=== PATIENT | male | born 1965 | race Caucasian/White ===

== ENCOUNTER 2021-04-10 09:08 | Inpatient (IN) | payer BC ==
[~2021-04-10] VITALS: Ht 170.2 cm; Wt 76.3 kg
[2021-04-10] MEDS ORDERED: dexameTHASONE 20MG/5ML VIAL (J1100 PER 1MG) IV ONE (09:35)
[2021-04-10 10:06] LABS: HEMOGLOBIN 13.4 g/dl (13.5-17.5); LYMPH # 0.8 10^3/uL (1.5-5.0); LYMPH % 18.3 % (24.0-44.0); MEAN CORPUSCULAR HEMOGLOBIN 31.4 pg (27.0-33.0); MEAN CORPUSCULAR HGB CONC 34.4 g/dl (32.0-36.5); MEAN CORPUSCULAR VOLUME 91.3 fl (80.0-96.0); MONO # 0.2 10^3/uL (0.0-0.8); MONO % 5.8 % (2.0-8.0); NEUTROPHILS # 3.2 10^3/uL (1.5-8.5); NEUTROPHILS % 75.7 % (36.0-66.0); PLATELET COUNT, AUTOMATED 133 10^3/uL (150-450); RED BLOOD COUNT 4.27 10^6/uL (4.30-6.10); WHITE BLOOD COUNT 4.2 10^3/uL (4.0-10.0)
[2021-04-10] MEDS: COMBIVENT RESPIMAT 100-20MCG INHALER 4GM INH SCH ×3 (10:12→10:31)
[2021-04-10 10:14] LABS: INR 1.12; PROTHROMBIN TIME 14.9 SECONDS (12.7-14.5)
[2021-04-10 10:15] LABS: PARTIAL THROMBOPLASTIN TIME 29.9 SECONDS (25.9-37.0)
[2021-04-10 10:17] LABS: D-DIMER QUANT 2283.25 ng/ml (<500)
--- NOTE | 2021-04-10 10:17 | REP ---
INDICATION: DYSPNEA/COUGH/Covid+ COMPARISON: None. TECHNIQUE: Portable AP view of the chest FINDINGS: Patchy predominantly lower lobe infiltrates (right greater than left) consistent with COVID-19 pulmonary disease. No effusion. No pneumothorax. Mediastinum and cardiac silhouette normal. Skeletal structures intact. IMPRESSION: Patchy bilateral opacities consistent with COVID-19 pulmonary disease. <Electronically signed by Shad Cruz > 04/10/21 [id number]
[2021-04-10] MEDS ORDERED: RA T500C2 PO (10:52)
[2021-04-10] MEDS ORDERED: PURE500C5 PO (10:52)
[2021-04-10] MEDS ORDERED: ZINC1TAB2 PO (10:52)
[2021-04-10] MEDS ORDERED: COQ1200C PO (10:52)
[2021-04-10] MEDS ORDERED: HOME MED LIST COMPLETE! XX SCH (10:55)
[2021-04-10 11:02] LABS: ALBUMIN 2.2 GM/DL (3.2-5.2); ALT/SGPT 45 U/L (12-78); BILIRUBIN,TOTAL 0.4 MG/DL (0.2-1.0); BLOOD UREA NITROGEN 17 MG/DL (7-18); CALCIUM LEVEL 7.3 MG/DL (8.5-10.1); CARBON DIOXIDE LEVEL 30 MEQ/L (21-32); CHLORIDE LEVEL 96 MEQ/L (98-107); CK-MB VALUE MASS 1.2 NG/ML (<3.6); CPK CREATINE PHOSPHOKINASE 167 U/L (39-308); CREATININE FOR GFR 1.23 MG/DL (0.70-1.30); FERRITIN 2521 NG/ML (26-388); GLOMERULAR FILTRATION RATE > 60.0 (>56); GLUCOSE, FASTING 122 MG/DL (70-100); LDH LACTATE DEHYDROGENASE 401 U/L (87-241); MB/CK RELATIVE INDEX 0.72 (< OR =4); POTASSIUM SERUM 3.4 MEQ/L (3.5-5.1); SODIUM LEVEL 130 MEQ/L (136-145); TOTAL PROTEIN 5.9 GM/DL (6.4-8.2); TROPONIN I 0.03 NG/ML (< 0.10)
--- NOTE | 2021-04-10 12:18 | HPEPDOC ---
General Date of Admission 04/10/21 Date of Service: Apr 10, 2021 Chief Complaint The patient is a 56-year-old male admitted with a reason for visit of Covid +. 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 Patient stated that last Tuesday he was diagnosed with COVID-19 and he developed progressive weakness associated with dry cough. Today he developed increased shortness of breath. He denied fever or chills. In ER patient was found to have no leukocytosis sodium level of 130, potassium 3.4, ferritin 2521, procalcitonin 0.29, D-dimer 2283. Chest x-ray showed Patchy bilateral opacities consistent with COVID-19 pulmonary disease Home Medications Scheduled Ascorbic Acid (Vitamin C) 500 Mg Capsule.er, 500 MG PO DAILY, (Reported) Turmeric Root Extract (Turmeric) 500 Mg Capsule, 500 MG PO DAILY, (Reported) Ubidecarenone (Co Q-10) 200 Mg Capsule, 200 MG PO DAILY, (Reported) Zinc (Zinc) 50 Mg Tablet, 50 MG PO DAILY, (Reported) Allergies Coded Allergies: No Known Allergies (Unverified , 04/10/21) Past Medical History Medical History B-cell lymphoma, osteoarthritis Surgical History Right hip replacement, both knees replacement Family History I personally reviewed family history and found not pertinent Social History * Smoker: Denies Alcohol: Denies Drugs: denies A-FIB/CHADSVASC A-FIB History Current/History of A-Fib/PAF?: No Current PO Anticoag Therapy: No Review of Systems Constitutional: Reports: Weakness, Fatigue; Denies: Chills, Fever Eyes: Denies: Pain ENT: Denies: Head Aches Skin: Denies: Rash, Lesions Pulmonary: Reports: Dyspnea, Cough Cardiovascular: Denies: Chest Pain, Palpitations Gastrointestinal: Denies: Nausea Genitourinary: Denies: Dysuria Hematologic: Denies: Bruising Endocrine: Denies: Polydipsia Musculoskeletal: Denies: Neck Pain Neurological: Denies: Weakness Psych: Reports: Mood Normal Physical Examination General Exam: Positive: Alert, Cooperative Eye Exam: Positive: PERRLA ENT Exam: Negative: Atraumatic Neck Exam: Positive: Supple; Negative: JVD Chest Exam: Positive: Diminished Heart Exam: Positive: Rate Normal Telemetry: Positive: No significant arrhythmia Abdomen Exam: Positive: Normal bowel sounds Extremity Exam: Negative: Clubbing, Cyanosis Skin Exam: Positive: Nl turgor and temperature Neuro Exam: Positive: Normal Gait Psych Exam: Positive: Oriented x 3 Vital Signs Vital Signs Date Time Temp Pulse Resp B/P (MAP) Pulse Ox O2 Delivery O2 Flow Rate FiO2 04/10/21 09:09 99.9 83 24 103/58 (73) 83 Room Air Laboratory Data Labs 24H Laboratory Tests 2 04/10/21 09:49: Immature Granulocyte % (Auto) 0.2, Neutrophils (%) (Auto) 75.7H, Lymphocytes (%) (Auto) 18.3L, Monocytes (%) (Auto) 5.8, Eosinophils (%) (Auto) 0.0, Basophils (%) (Auto) 0.0, Neutrophils # (Auto) 3.2, Lymphocytes # (Auto) 0.8L, Monocytes # (Auto) 0.2, Eosinophils # (Auto) 0.0, Basophils # (Auto) 0.0, Nucleated Red Blood Cells % (auto) 0.0, Prothrombin Time 14.9H, Prothromb Time International Ratio 1.12, Activated Partial Thromboplast Time 29.9, D-Dimer, Quantitative 2283.25H, Anion Gap 4L, Glomerular Filtration Rate > 60.0, Lactic Acid Level 1.3, Calcium Level 7.3L, Ferritin 2521H, Total Bilirubin 0.4, Aspartate Amino Transf (AST/SGOT) 62H, Alanine Aminotransferase (ALT/SGPT) 45, Alkaline Phosphat ase 31L, Lactate Dehydrogenase 401H, Total Creatine Kinase 167, Creatine Kinase MB 1.2, Creatine Kinase MB Relative Index 0.72, Troponin I 0.03, C-Reactive Protein, Quantitative 13.50H, Total Protein 5.9L, Albumin 2.2L, Albumin/Globulin Ratio 0.6, Procalcitonin 0.29 CBC/BMP Laboratory Tests 04/10/21 09:49 Microbiology Microbiology 04/10/21 Respiratory Virus Panel (PCR) (JD), Received Pending 04/10/21 Blood Culture, Received Pending Assessment/Plan Patient is 56 years old male with 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 Patient stated that last Tuesday he was diagnosed with COVID-19 and he developed progressive weakness associated with dry cough. Today he developed increased shortness of breath. He denied fever or chills. In ER patient was found to have no leukocytosis sodium level of 130, potassium 3.4, ferritin 2521, procalcitonin 0.29, D-dimer 2283. Chest x-ray showed Patchy bilateral opacities consistent with COVID-19 pulmonary disease Problems (1) COVID Status: Acute Problem Text: Patient developed COVID-19 pneumonia Labs according to COVID-19 protocol Remdesivir, baricitinib, dexamethasone Incentive spirometry Procalcitonin elevated to 0.29 I will start levofloxacin p.o. (2) Acute respiratory failure with hypoxia Status: Acute Problem Text: Secondary COVID-19 pneumonia Patient oxygen requirements increased from 4 L via nasal cannula Continue oxygen supplementation Plan / VTE VTE Prophylaxis Ordered?: Yes SANDRA DEVI DO Apr 10, 2021 12:18
--- OUTSIDE RECORDS SUMMARY | 2021-04-10 12:23 | CCD ---
Author Author [facility] Organization [facility] Address Unknown Phone Unavailable Care Team Providers Care Clip On Sunglasses Inspector Name Role Phone Warren, M Christopher PA-C Unavailable Unavailable Warren, M Christopher PA-C Unavailable Unavailable Warren, M Christopher PA-C Unavailable Unavailable Warren, M Christopher PA-C Unavailable Unavailable Warren, M Christopher PA-C Unavailable Unavailable Warren, M Christopher PA-C Unavailable Unavailable Warren, M Christopher PA-C Unavailable Unavailable Warren, M Christopher PA-C Unavailable Unavailable Warren, M Christopher PA-C Unavailable Unavailable Warren, M Christopher PA-C Unavailable Unavailable Warren, M Christopher PA-C Unavailable Unavailable Warren, M Christopher PA-C Unavailable Unavailable Warren, M Christopher PA-C Unavailable Unavailable Warren, M Christopher PA-C Unavailable Unavailable Warren, M Christopher PA-C Unavailable Unavailable Warren, M Christopher PA-C Unavailable Unavailable Warren, M Christopher PA-C Unavailable Unavailable Warren, M Christopher PA-C Unavailable Unavailable Warren, M Christopher PA-C Unavailable Unavailable Warren, M Christopher PA-C Unavailable Unavailable Warren, M Christopher PA-C Unavailable Unavailable Warren, M Christopher PA-C Unavailable Unavailable Warren, M Christopher PA-C Unavailable Unavailable Warren, M Christopher PA-C Unavailable Unavailable Warren, M Christopher PA-C Unavailable Unavailable Warren, M Christopher PA-C Unavailable Unavailable Re-disclosure Warning The records that you are about to access may contain information from federally-assisted alcohol or drug abuse programs. If such information is present, then the following federally mandated warning applies: This information has been disclosed to you from records protected by federal confidentiality rules (42 CFR part 2). The federal rules prohibit you from making any further disclosure of this information unless further disclosure is expressly permitted by the written consent of the person to whom it pertains or as otherwise permitted by 42 CFR part 2. A general authorization for the release of medical or other information is NOT sufficient for this purpose. The Federal rules restrict any use of the information to criminally investigate or prosecute any alcohol or drug abuse patient.The records that you are about to access may contain highly sensitive health information, the redisclosure of which is protected by Article 27-F of the [facility] Public Health law. If you continue you may have access to information: Regarding HIV / AIDS; Provided by facilities licensed or operated by the [facility] Office of Mental Health; or Provided by the [facility] Office for People With Developmental Disabilities. If such information is present, then the following [facility] mandated warning applies: This information has been disclosed to you from confidential records which are protected by state law. State law prohibits you from making any further disclosure of this information without the specific written consent of the person to whom it pertains, or as otherwise permitted by law. Any unauthorized further disclosure in violation of state law may result in a fine or fdc sentence or both. A general authorization for the release of medical or other information is NOT sufficient authorization for further disc losure. Encounters Encounter Providers Location Date Indications Data Source(s ) Outpatient Attender: Bret Warren PA-C 04/04/2021 04:24:16 PM EDT - 04/04/2021 05:20:43 PM EDT [facility] ([facility]) Medications No Information Insurance Providers Payer name Policy type / Coverage type Policy ID Covered republican ID Covered republican's relationship to lane Policy Lane Plan Information [employer] [facility] Blue Cross/ Blue Shield [id number] Self [id number] SELF PAY COVID19 ONLY . . BLUE CROSS [id number] SELF [id number] [facility] [id number] SP [id number] Problems, Conditions, and Diagnoses No Information Surgeries/Procedures No Information Results No Information Social History No Information
[2021-04-10] MEDS: LevoFLOXacin 500 MG TABLET PO SCH (13:24)
[2021-04-10] MEDS: BARICITINIB 2MG TABLET (OLUMIANT) FOR EUA PO SCH (15:44)
[2021-04-10] MEDS ORDERED: REMDESIVIR 200 MG in NS 250 ML IV ONE (17:00)
[2021-04-10] MEDS ORDERED: SODIUM CHLORIDE 0.9% INJ 10 ML SYR IV ONE (19:00)
[2021-04-10 23:07] VITALS: BP_SYST 110; BP_DIAS 61; BP_DIAS 92; O2SAT 92
[2021-04-11] VITALS (8 sets, daily range): BP systolic 98–103; BP diastolic 58–59; O2SAT 79–96
[2021-04-11 04:17] LABS: APPEARANCE, URINE CLEAR (CLEAR); BACTERIA, URINE AUTO NEGATIVE (NEGATIVE); BILIRUBIN, URINE AUTO NEGATIVE (NEGATIVE); BLOOD, URINE BLOOD NEGATIVE (NEGATIVE); COLOR, URINE YELLOW (YELLOW); GLUCOSE, URINE (UA) AUTO NEGATIVE (NEGATIVE); KETONE, URINE AUTO NEGATIVE (NEGATIVE); LEUKOCYTE ESTERASE, URINE AUTO NEGATIVE (NEGATIVE); NITRITE, URINE AUTO NEGATIVE (NEGATIVE); PROTEIN, URINE AUTO 2+ mg/dL (NEGATIVE); RBC, URINE AUTO 0 /HPF (0-3); SPECIFIC GRAVITY URINE AUTO 1.012 (1.002-1.035); SQUAMOUS EPITHELIAL CELL UR AU 0 /HPF (0-6); UROBILINOGEN, URINE AUTO 0.2 mg/dL (0.0-2.0); WBC, URINE AUTO 1 /HPF (0-3)
[2021-04-11] MEDS: LevoFLOXacin 500 MG TABLET PO SCH (04:31)
[2021-04-11 07:55] LABS: HEMATOCRIT 43.2 % (42.0-52.0); HEMOGLOBIN 14.8 g/dl (13.5-17.5); LYMPH # 0.9 10^3/uL (1.5-5.0); LYMPH % 14.3 % (24.0-44.0); MEAN CORPUSCULAR HEMOGLOBIN 31.9 pg (27.0-33.0); MEAN CORPUSCULAR HGB CONC 34.3 g/dl (32.0-36.5); MEAN CORPUSCULAR VOLUME 93.1 fl (80.0-96.0); MONO # 0.3 10^3/uL (0.0-0.8); MONO % 5.3 % (2.0-8.0); NEUTROPHILS # 5.1 10^3/uL (1.5-8.5); NEUTROPHILS % 80.1 % (36.0-66.0); PLATELET COUNT, AUTOMATED 166 10^3/uL (150-450); RED BLOOD COUNT 4.64 10^6/uL (4.30-6.10); WHITE BLOOD COUNT 6.4 10^3/uL (4.0-10.0)
[2021-04-11 08:29] LABS: ALBUMIN 2.4 GM/DL (3.2-5.2); ALT/SGPT 44 U/L (12-78); BILIRUBIN,DIRECT 0.1 MG/DL (0.0-0.2); BILIRUBIN,TOTAL 0.4 MG/DL (0.2-1.0); BLOOD UREA NITROGEN 15 MG/DL (7-18); CALCIUM LEVEL 8.6 MG/DL (8.5-10.1); CARBON DIOXIDE LEVEL 32 MEQ/L (21-32); CHLORIDE LEVEL 100 MEQ/L (98-107); CREATININE FOR GFR 0.93 MG/DL (0.70-1.30); GLOMERULAR FILTRATION RATE > 60.0 (>56); GLUCOSE, FASTING 112 MG/DL (70-100); MAGNESIUM LEVEL 2.1 MG/DL (1.8-2.4); POTASSIUM SERUM 3.8 MEQ/L (3.5-5.1); SODIUM LEVEL 137 MEQ/L (136-145); TOTAL PROTEIN 5.5 GM/DL (6.4-8.2)
[2021-04-11] MEDS: ENOXAPARIN 40MG/0.4ML SYRINGE (J1650 PER 10MG) SC SCH (11:17)
[2021-04-11] MEDS: dexameTHASONE 4 MG/ML 1ML VIAL (J1100 PER 1MG) IV SCH (11:17)
[2021-04-11] MEDS: BARICITINIB 2MG TABLET (OLUMIANT) FOR EUA PO SCH (11:17)
--- NOTE | 2021-04-11 13:21 | IPNPDOC ---
Text Note Date of Service The patient was seen on 04/11/21. NOTE Subjective: Patient's oxygen requirements significantly increased. He is cu rrently on 30 L on FiO2 60%. 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 Patient stated that last Tuesday he was diagnosed with COVID-19 and he developed progressive weakness associated with dry cough. Today he developed increased shortness of breath. He denied fever or chills. In ER patient was found to have no leukocytosis sodium level of 130, potassium 3.4, ferritin 2521, procalcitonin 0.29, D-dimer 2283. Chest x-ray showed Patchy bilateral opacities consistent with COVID-19 pulmonary disease Problems (1) COVID/ARDS Patient developed COVID-19 pneumonia Labs according to COVID-19 protocol Remdesivir, baricitinib, dexamethasone day 2 Blood culture negative Incentive spirometry Procalcitonin elevated to 0.29 I started levofloxacin p.o. (2) Acute respiratory failure with hypoxia Secondary COVID-19 pneumonia Continue oxygen supplementation DVT prophylaxis with Lovenox VS,Fishbone, I+O VS, Fishbone, I+O Laboratory Tests 04/11/21 07:05 Vital Signs Date Time Temp Pulse Resp B/P (MAP) Pulse Ox O2 Delivery O2 Flow Rate FiO2 04/11/21 08:25 91 HVNI-Vapotherm 30.0 60 04/11/21 05:41 96.4 66 19 98/58 (71) I&O- Last 24 Hours up to 6 AM0 04/11/21 06:00 Intake Total 290 ml Output Total 2175 ml Balance -1885 ml SANDRA DEVI DO Apr 11, 2021 13:21
[2021-04-11] MEDS ORDERED: guaiFENesin SYRUP 200 MG/10 ML UDC PO PRN (16:30)
[2021-04-11] MEDS: REMDESIVIR 100 MG in NS 250 ML IV SCH (17:42)
[2021-04-11] MEDS: SODIUM CHLORIDE 0.9% INJ 10 ML SYR IV SCH (17:43)
[2021-04-12 01:30] VITALS: O2SAT 87
[2021-04-12] MEDS: IPRATROPIUM 0.5MG/ALBUTEROL 2.5MG INH SOL UD 3ML (DUONEB) NEB SCH ×4 (01:56→20:03)
[2021-04-12] MEDS ORDERED: ALBUTEROL SULFATE 2.5 MG/0.5 ML INH NEB SOLN NEB PRN (02:20)
[2021-04-12 02:21] LABS: ABG BASE EXCESS 2.8 (-2.0-2.0); ABG HCO3 24.9 MEQ/L (22.0-26.0); ABG PARTIAL PRESSURE CO2 31.4 mmHg (35.0-45.0); ABG PARTIAL PRESSURE O2 55.3 mmHg (75.0-100.0); ABG STANDARD HCO3 26.7 MEQ/L (22.0-26.0); ABG TOTAL CO2 25.9 MEQ/L (22.0-29.0); ABG pH (ARTERIAL) 7.517 UNITS (7.350-7.450)
[2021-04-12] MEDS ORDERED: hydrOXYzine 25 MG TAB PO PRN (03:00)
[2021-04-12] MEDS ORDERED: RAMELTEON 8 MG TAB (ROZEREM) PO PRN (03:00)
--- NOTE | 2021-04-12 03:00 | REPVR ---
PROCEDURE INFORMATION: Exam: XR Chest Exam date and time: 04/12/2021 2:19 AM Age: 56 years old Clinical indication: Other: Desat TECHNIQUE: Imaging protocol: XR of the chest. Views: 1 view. COMPARISON: CR PORTABLE CHEST X-RAY 04/10/2021 9:53 AM FINDINGS: Lungs: There are persistent subpleural pulmonary opacities in both lungs. Infiltrates in the right lung base are slightly improved. No new abnormalities. Pleural spaces: No pleural effusion. No pneumothorax. Heart/Mediastinum: Unremarkable. No cardiomegaly. Bones/joints: Unremarkable. IMPRESSION: Interval improvement of right basilar airspace disease. Other pulmonary opacities are unchanged. Electronically signed by: Horacio Chou On 04/12/2021 02:59:54 AM
[2021-04-12] MEDS ORDERED: DOCUSATE SODIUM 100MG CAPSULE PO PRN (03:05)
[2021-04-12] MEDS ORDERED: SIMETHICONE 80MG CHEW TAB PO PRN (03:05)
[2021-04-12 03:31] LABS: BASO % 0.1 % (0.0-1.0); HEMATOCRIT 40.4 % (42.0-52.0); HEMOGLOBIN 13.9 g/dl (13.5-17.5); LYMPH # 0.7 10^3/uL (1.5-5.0); LYMPH % 9.2 % (24.0-44.0); MEAN CORPUSCULAR HEMOGLOBIN 31.7 pg (27.0-33.0); MEAN CORPUSCULAR HGB CONC 34.4 g/dl (32.0-36.5); MONO # 0.4 10^3/uL (0.0-0.8); MONO % 5.7 % (2.0-8.0); NEUTROPHILS # 6.1 10^3/uL (1.5-8.5); NEUTROPHILS % 84.4 % (36.0-66.0); PLATELET COUNT, AUTOMATED 178 10^3/uL (150-450); RED BLOOD COUNT 4.39 10^6/uL (4.30-6.10); WHITE BLOOD COUNT 7.2 10^3/uL (4.0-10.0)
[2021-04-12 03:43] LABS: INR 1.27; PROTHROMBIN TIME 16.3 SECONDS (12.7-14.5)
[2021-04-12 03:44] LABS: PARTIAL THROMBOPLASTIN TIME 34.3 SECONDS (25.9-37.0)
--- NOTE | 2021-04-12 04:00 | IPNPDOC ---
Text Note Date of Service Significant event NOTE Patient with desat episode 84 to 87%. Patient improved with proning 94 to 100%. He described increased shortness of breath sensation. ABG completed and showed respiratory alkalosis. Breathing treatment initiated. Patient reports improvement and upon sitting up SPO2 91%. He does have some coarseness to auscultation, but appears unlabored on 40L 100% vapotherm. Chest x-ray completed and actually shows some right airspace improvement. He is on Levaquin, Decadron, remdesivir, scheduled and as needed breathing treatments as well as antitussives presently. Anxiety may be playing a role, will offer prn sleep aid and anxiety medication. WCTM. VS,Fishbone, I+O VS, Fishbone, I+O Laboratory Tests 04/11/21 07:05 Vital Signs Date Time Temp Pulse Resp B/P (MAP) Pulse Ox O2 Delivery O2 Flow Rate FiO2 04/12/21 01:56 20 04/12/21 01:30 87 High Flow Mask 40.0 100 04/11/21 22:00 99.4 78 103/59 (74) I&O- Last 24 Hours up to 6 AM 04/12/21 06:00 Intake Total 1260 ml Output Total 1100 ml Balance 160 ml CHAR MATHUR NP Apr 12, 2021 02:32
[2021-04-12 04:15] LABS: ALBUMIN 2.2 GM/DL (3.2-5.2); ALT/SGPT 49 U/L (12-78); BILIRUBIN,DIRECT 0.2 MG/DL (0.0-0.2); BILIRUBIN,TOTAL 0.5 MG/DL (0.2-1.0); BLOOD UREA NITROGEN 21 MG/DL (7-18); CALCIUM LEVEL 7.9 MG/DL (8.5-10.1); CARBON DIOXIDE LEVEL 28 MEQ/L (21-32); CHLORIDE LEVEL 102 MEQ/L (98-107); CPK CREATINE PHOSPHOKINASE 206 U/L (39-308); CREATININE FOR GFR 0.95 MG/DL (0.70-1.30); FERRITIN 2302 NG/ML (26-388); GLOMERULAR FILTRATION RATE > 60.0 (>56); GLUCOSE, FASTING 118 MG/DL (70-100); LDH LACTATE DEHYDROGENASE 481 U/L (87-241); MAGNESIUM LEVEL 1.9 MG/DL (1.8-2.4); NT-PRO BNP 578 PG/ML (<125); POTASSIUM SERUM 3.8 MEQ/L (3.5-5.1); SODIUM LEVEL 138 MEQ/L (136-145); TOTAL PROTEIN 5.2 GM/DL (6.4-8.2); TROPONIN I < 0.02 NG/ML (< 0.10)
[2021-04-12] MEDS: LevoFLOXacin 500 MG TABLET PO SCH (05:23)
[2021-04-12] MEDS: ACETAMINOPHEN TAB 650MG DOSE (2X325MG) PO PRN (05:23)
[2021-04-12 05:29] VITALS: BP 110/66
[2021-04-12 08:00] VITALS: O2SAT 98
[2021-04-12 09:18] LABS: ALBUMIN 2.1 GM/DL (3.2-5.2); ALT/SGPT 45 U/L (12-78); BILIRUBIN,DIRECT 0.2 MG/DL (0.0-0.2); BILIRUBIN,TOTAL 0.4 MG/DL (0.2-1.0); C REACTIVE PROTEIN QUANTITATIV 8.79 MG/DL (0.00-0.30); CPK CREATINE PHOSPHOKINASE 207 U/L (39-308); FERRITIN 1987 NG/ML (26-388); LDH LACTATE DEHYDROGENASE 462 U/L (87-241); TOTAL PROTEIN 5.8 GM/DL (6.4-8.2); TROPONIN I < 0.02 NG/ML (< 0.10)
[2021-04-12 09:22] LABS: INR 1.23; PARTIAL THROMBOPLASTIN TIME 34.1 SECONDS (25.9-37.0)
[2021-04-12 09:25] LABS: D-DIMER QUANT 1576.56 ng/ml (<500)
[2021-04-12] MEDS: BARICITINIB 2MG TABLET (OLUMIANT) FOR EUA PO SCH (10:15)
[2021-04-12] MEDS: ENOXAPARIN 40MG/0.4ML SYRINGE (J1650 PER 10MG) SC SCH (10:15)
[2021-04-12] MEDS: dexameTHASONE 4 MG/ML 1ML VIAL (J1100 PER 1MG) IV SCH (10:16)
--- NOTE | 2021-04-12 11:11 | IPNPDOC ---
Text Note Date of Service The patient was seen on 04/12/21. NOTE Subjective: Patient's oxygen requirements significantly increased. He is cu rrently on 40 L on FiO2 100%. 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 Patient stated that last Tuesday he was diagnosed with COVID-19 and he developed progressive weakness associated with dry cough. Today he developed increased shortness of breath. He denied fever or chills. In ER patient was found to have no leukocytosis sodium level of 130, potassium 3.4, ferritin 2521, procalcitonin 0.29, D-dimer 2283. Chest x-ray showed Patchy bilateral opacities consistent with COVID-19 pulmonary disease Problems (1) COVID/ARDS Patient developed COVID-19 pneumonia Labs according to COVID-19 protocol Remdesivir, baricitinib, dexamethasone day 3 Blood culture negative Incentive spirometry Procalcitonin elevated to 0.29 I started levofloxacin p.o. day 1 (2) Acute respiratory failure with hypoxia Secondary COVID-19 pneumonia Continue oxygen supplementation DVT prophylaxis with Lovenox VS,Fishbone, I+O VS, Fishbone, I+O Laboratory Tests 04/12/21 03:21 Vital Signs Date Time Temp Pulse Resp B/P (MAP) Pulse Ox O2 Delivery O2 Flow Rate FiO2 04/12/21 08:12 91 HVNI-Vapotherm 40.0 100 04/12/21 05:29 100.5 88 21 110/66 (81) I&O- Last 24 Hours up to 6 AM 04/12/21 06:00 Intake Total 1260 ml Output Total 1425 ml Balance -165 ml SANDRA DEVI DO Apr 12, 2021 11:11
[2021-04-12 12:00] VITALS: BP 99/50; O2SAT 98
[2021-04-12 16:00] VITALS: BP 121/64
[2021-04-12] MEDS: REMDESIVIR 100 MG in NS 250 ML IV SCH (18:11)
[2021-04-12] MEDS: SODIUM CHLORIDE 0.9% INJ 10 ML SYR IV SCH (18:12)
[2021-04-12 19:45] VITALS: BP 124/67
--- NOTE | 2021-04-12 21:18 | ECGEPIP ---
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
[2021-04-13 01:42] VITALS: BP 116/66
[2021-04-13] MEDS: IPRATROPIUM 0.5MG/ALBUTEROL 2.5MG INH SOL UD 3ML (DUONEB) NEB SCH ×4 (01:45→20:07)
[2021-04-13 04:35] VITALS: BP 116/66
[2021-04-13] MEDS: ACETAMINOPHEN TAB 650MG DOSE (2X325MG) PO PRN (04:50)
[2021-04-13] MEDS: LevoFLOXacin 500 MG TABLET PO SCH (05:37)
[2021-04-13 07:35] LABS: BASO % 0.1 % (0.0-1.0); HEMATOCRIT 38.4 % (42.0-52.0); HEMOGLOBIN 13.4 g/dl (13.5-17.5); LYMPH # 0.8 10^3/uL (1.5-5.0); LYMPH % 9.6 % (24.0-44.0); MEAN CORPUSCULAR HEMOGLOBIN 31.8 pg (27.0-33.0); MEAN CORPUSCULAR HGB CONC 34.9 g/dl (32.0-36.5); MONO # 0.5 10^3/uL (0.0-0.8); MONO % 5.8 % (2.0-8.0); NEUTROPHILS # 6.8 10^3/uL (1.5-8.5); PLATELET COUNT, AUTOMATED 209 10^3/uL (150-450); RED BLOOD COUNT 4.22 10^6/uL (4.30-6.10)
[2021-04-13 08:04] LABS: BLOOD UREA NITROGEN 12 MG/DL (7-18); CALCIUM LEVEL 8.4 MG/DL (8.5-10.1); CARBON DIOXIDE LEVEL 28 MEQ/L (21-32); CHLORIDE LEVEL 104 MEQ/L (98-107); CREATININE FOR GFR 0.84 MG/DL (0.70-1.30); GLOMERULAR FILTRATION RATE > 60.0 (>56); GLUCOSE, FASTING 98 MG/DL (70-100); MAGNESIUM LEVEL 1.9 MG/DL (1.8-2.4); POTASSIUM SERUM 3.2 MEQ/L (3.5-5.1); SODIUM LEVEL 138 MEQ/L (136-145)
[2021-04-13] MEDS: BARICITINIB 2MG TABLET (OLUMIANT) FOR EUA PO SCH (08:27)
[2021-04-13] MEDS: ENOXAPARIN 40MG/0.4ML SYRINGE (J1650 PER 10MG) SC SCH (08:28)
[2021-04-13] MEDS: dexameTHASONE 4 MG/ML 1ML VIAL (J1100 PER 1MG) IV SCH (08:28)
[2021-04-13] MEDS ORDERED: POTASSIUM CHLORIDE 10MEQ SR TABLET PO ONE (13:00)
--- NOTE | 2021-04-13 16:29 | IPNPDOC ---
Text Note Date of Service The patient was seen on 04/13/21. NOTE Subjective: Patient's oxygen requirements significantly increased. He is cu rrently on 40 L on FiO2 100%. 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 Patient stated that last Tuesday he was diagnosed with COVID-19 and he developed progressive weakness associated with dry cough. Today he developed increased shortness of breath. He denied fever or chills. In ER patient was found to have no leukocytosis sodium level of 130, potassium 3.4, ferritin 2521, procalcitonin 0.29, D-dimer 2283. Chest x-ray showed Patchy bilateral opacities consistent with COVID-19 pulmonary disease Problems (1) COVID/ARDS/ SIRS Patient developed COVID-19 pneumonia Labs according to COVID-19 protocol Remdesivir, baricitinib, dexamethasone day 4. Patient developed SIRS with tachy pnea and fever Blood culture negative Incentive spirometry Procalcitonin elevated to 0.29 I started levofloxacin p.o. day 2. Procalcitonin on 04/12/2021 0.08 (2) Acute respiratory failure with hypoxia Secondary COVID-19 pneumonia Continue oxygen supplementation DVT prophylaxis with Lovenox VS,Fishbone, I+O VS, Fishbone, I+O Laboratory Tests 04/13/21 07:05 Vital Signs Date Time Temp Pulse Resp B/P (MAP) Pulse Ox O2 Delivery O2 Flow Rate FiO2 04/13/21 13:22 93 HVNI-Vapotherm 30.0 75 04/13/21 04:35 101.0 92 22 116/66 (83) I&O- Last 24 Hours up to 6 AM 04/13/21 06:00 Intake Total 360 ml Output Total 725 ml Balance -365 ml SANDRA DEVI DO Apr 13, 2021 16:29
[2021-04-13] MEDS: REMDESIVIR 100 MG in NS 250 ML IV SCH (17:54)
[2021-04-13] MEDS: SODIUM CHLORIDE 0.9% INJ 10 ML SYR IV SCH (18:00)
[2021-04-13 20:00] VITALS: BP 106/56
[2021-04-14] VITALS: BP 108/63
[2021-04-14] MEDS: IPRATROPIUM 0.5MG/ALBUTEROL 2.5MG INH SOL UD 3ML (DUONEB) NEB SCH ×4 (01:01→20:16)
[2021-04-14 04:00] VITALS: BP 113/57
[2021-04-14] MEDS: LevoFLOXacin 500 MG TABLET PO SCH (05:05)
[2021-04-14] MEDS: ACETAMINOPHEN TAB 650MG DOSE (2X325MG) PO PRN (05:05)
[2021-04-14 07:24] LABS: BASO % 0.1 % (0.0-1.0); HEMATOCRIT 39.4 % (42.0-52.0); HEMOGLOBIN 13.7 g/dl (13.5-17.5); LYMPH # 0.6 10^3/uL (1.5-5.0); LYMPH % 6.9 % (24.0-44.0); MEAN CORPUSCULAR HEMOGLOBIN 31.8 pg (27.0-33.0); MEAN CORPUSCULAR HGB CONC 34.8 g/dl (32.0-36.5); MEAN CORPUSCULAR VOLUME 91.4 fl (80.0-96.0); MONO # 0.3 10^3/uL (0.0-0.8); MONO % 3.7 % (2.0-8.0); NEUTROPHILS # 8.1 10^3/uL (1.5-8.5); NEUTROPHILS % 88.9 % (36.0-66.0); PLATELET COUNT, AUTOMATED 241 10^3/uL (150-450); RED BLOOD COUNT 4.31 10^6/uL (4.30-6.10); WHITE BLOOD COUNT 9.1 10^3/uL (4.0-10.0)
[2021-04-14] MEDS ORDERED: POTASSIUM CHLORIDE 10MEQ SR TABLET PO ONE (07:30)
[2021-04-14 07:39] LABS: INR 1.23; PROTHROMBIN TIME 15.9 SECONDS (12.7-14.5)
[2021-04-14 07:40] LABS: PARTIAL THROMBOPLASTIN TIME 30.8 SECONDS (25.9-37.0)
[2021-04-14 07:48] LABS: ALBUMIN 2.1 GM/DL (3.2-5.2); ALT/SGPT 35 U/L (12-78); BILIRUBIN,DIRECT 0.2 MG/DL (0.0-0.2); BILIRUBIN,TOTAL 0.7 MG/DL (0.2-1.0); BLOOD UREA NITROGEN 15 MG/DL (7-18); CALCIUM LEVEL 8.4 MG/DL (8.5-10.1); CARBON DIOXIDE LEVEL 29 MEQ/L (21-32); CHLORIDE LEVEL 104 MEQ/L (98-107); CPK CREATINE PHOSPHOKINASE 85 U/L (39-308); CREATININE FOR GFR 0.79 MG/DL (0.70-1.30); FERRITIN 1584 NG/ML (26-388); GLOMERULAR FILTRATION RATE > 60.0 (>56); GLUCOSE, FASTING 96 MG/DL (70-100); LDH LACTATE DEHYDROGENASE 564 U/L (87-241); MAGNESIUM LEVEL 1.9 MG/DL (1.8-2.4); NT-PRO BNP 707 PG/ML (<125); POTASSIUM SERUM 3.8 MEQ/L (3.5-5.1); SODIUM LEVEL 137 MEQ/L (136-145); TOTAL PROTEIN 5.7 GM/DL (6.4-8.2); TROPONIN I < 0.02 NG/ML (< 0.10)
--- NOTE | 2021-04-14 08:57 | IPN ---
PROGRESS NOTE DATE: 04/14/2021 SUBJECTIVE: The patient still complains of dyspnea on exertion, takes about two minutes to recover with saturation dipping down to make 86 x 60% FiO2 on Vapotherm at 30 liters flow rate. He is still febrile, 102.2 and is currently on Levaquin, baricitinib and remdesivir. The patient's appetite is decreased but no nausea, vomiting, diarrhea, abdominal pain, headache. The patient denies any dysgeusia or anosmia. OBJECTIVE: Vitals: Temperature T max 102.2, pulse 96, respiratory rate 18, blood pressure 113/57, 93% on Vapotherm, 65% FiO2, 30 liters flow rate. General: Awake, alert and oriented x3. Patient has 4-5 word conversational dyspnea. Saturation has dropped to about 85% when he speaks sentences, no JVD or thyromegaly, moist mucous membranes. Lungs: Diminished bilaterally. Heart: S1, S2, sinus rhythm. Abdomen: Soft, nontender, nondistended, positive bowel sounds. Extremities: No cyanosis, clubbing or pitting edema. Laboratory data, imaging studies, microbiology have been reviewed. ASSESSMENT AND PLAN: This is a 56-year-old with history of B-cell lymphoma, status post chemoradiation 10 years ago and has been in remission, presented with dyspnea, found to have progressive weakness and a dry cough without fever or chills, admitted for bilateral coronavirus pneumonia. IMPRESSION: 1. Coronavirus pneumonia, ARDS, systemic inflammatory response syndrome, currently on remdesivir, baricitinib, dexamethasone, day #5. Patient is still quite hypoxic on day #3 of Levaquin with persistent fever, 102.2. 2. Acute hypoxic respiratory failure secondary to coronavirus infection, currently on supplemental oxygen with Vapotherm, FiO2 65%, titrated from 100% on 04/13/2021. MTDD
[2021-04-14] MEDS: BARICITINIB 2MG TABLET (OLUMIANT) FOR EUA PO SCH (09:56)
[2021-04-14] MEDS: ENOXAPARIN 40MG/0.4ML SYRINGE (J1650 PER 10MG) SC SCH (09:56)
[2021-04-14] MEDS: dexameTHASONE 4 MG/ML 1ML VIAL (J1100 PER 1MG) IV SCH (09:57)
[2021-04-14 14:00] VITALS: BP 108/63
[2021-04-14] MEDS: REMDESIVIR 100 MG in NS 250 ML IV SCH (16:10)
[2021-04-14] MEDS: SODIUM CHLORIDE 0.9% INJ 10 ML SYR IV SCH (16:11)
[2021-04-14 17:03] VITALS: O2SAT 98
[2021-04-14 20:00] VITALS: BP 107/56
[2021-04-15] MEDS: IPRATROPIUM 0.5MG/ALBUTEROL 2.5MG INH SOL UD 3ML (DUONEB) NEB SCH ×4 (02:00→18:31)
[2021-04-15 04:00] VITALS: BP 102/56
[2021-04-15] MEDS: LevoFLOXacin 500 MG TABLET PO SCH (04:46)
[2021-04-15] MEDS: ACETAMINOPHEN TAB 650MG DOSE (2X325MG) PO PRN (04:46)
[2021-04-15 07:29] LABS: BASO % 0.1 % (0.0-1.0); HEMATOCRIT 40.4 % (42.0-52.0); HEMOGLOBIN 13.9 g/dl (13.5-17.5); LYMPH # 0.8 10^3/uL (1.5-5.0); LYMPH % 7.8 % (24.0-44.0); MEAN CORPUSCULAR HEMOGLOBIN 31.4 pg (27.0-33.0); MEAN CORPUSCULAR HGB CONC 34.4 g/dl (32.0-36.5); MEAN CORPUSCULAR VOLUME 91.4 fl (80.0-96.0); MONO # 0.5 10^3/uL (0.0-0.8); MONO % 4.9 % (2.0-8.0); NEUTROPHILS # 9.2 10^3/uL (1.5-8.5); NEUTROPHILS % 86.4 % (36.0-66.0); PLATELET COUNT, AUTOMATED 256 10^3/uL (150-450); RED BLOOD COUNT 4.42 10^6/uL (4.30-6.10); WHITE BLOOD COUNT 10.6 10^3/uL (4.0-10.0)
[2021-04-15 07:46] LABS: BLOOD UREA NITROGEN 15 MG/DL (7-18); CALCIUM LEVEL 8.5 MG/DL (8.5-10.1); CARBON DIOXIDE LEVEL 27 MEQ/L (21-32); CHLORIDE LEVEL 106 MEQ/L (98-107); CREATININE FOR GFR 0.73 MG/DL (0.70-1.30); GLOMERULAR FILTRATION RATE > 60.0 (>56); GLUCOSE, FASTING 97 MG/DL (70-100); POTASSIUM SERUM 3.8 MEQ/L (3.5-5.1); SODIUM LEVEL 139 MEQ/L (136-145)
[2021-04-15] MEDS: BARICITINIB 2MG TABLET (OLUMIANT) FOR EUA PO SCH (08:26)
[2021-04-15] MEDS: ENOXAPARIN 40MG/0.4ML SYRINGE (J1650 PER 10MG) SC SCH (08:26)
[2021-04-15] MEDS: dexameTHASONE 4 MG/ML 1ML VIAL (J1100 PER 1MG) IV SCH (08:26)
[2021-04-15 09:00] VITALS: O2SAT 95
--- NOTE | 2021-04-15 13:44 | IPN ---
PROGRESS NOTE DATE: 04/15/2021 SUBJECTIVE: Patient continues to be febrile with T-max of 102.2 yesterday. Current temperature 100.2 at the bedside at 4:00 a.m. this morning. He complains of worsening dyspnea with increased need of FiO2 from 60-80% of Vapotherm. He otherwise still has a cough productive of white sputum without chills. No nausea, vomiting or diarrhea, abdominal pain, decrease in appetite. Denies anosmia or dysgeusia. OBJECTIVE: Vital signs: T-max 102.2, current temperature 98.8, pulse 80, respiratory rate 18, blood pressure 102/56, 88% on Vapotherm, 80% FiO2, 30 liters flow rate. General: Patient is in prone position on his abdomen with his face on the left side. He is able to complete sentences. Neck: No JVD, no thyromegaly. Lungs: Diminished with no rales. Heart: S1 and S2 sinus rhythm. Abdomen: Soft, nontender, nondistended, positive bowel sounds. Extremities: No pitting edema. LABORATORY DATA/IMAGING STUDIES/MICROBIOLOGY: Have been reviewed. ASSESSMENT: This is a 56-year-old male with a history of B cell lymphoma status post chemoradiation 10 years ago and has been in remission, presented with exertional dyspnea and progressive weakness, dry cough without fever or chills, found to be positive for Coronavirus. Chest x-ray shows bilateral infiltrates. IMPRESSIONS: 1. Coronavirus pneumonia, ARDS, systemic inflammatory response. 2. Acute hypoxic respiratory failure secondary to Coronavirus. PLAN: Patient is currently on Vapotherm at 80% FiO2, flow rate of 30 liters. He remains febrile despite being on remdesivir, dexamethasone and baricitinib. We will continue current management for now as well as Lovenox, Decadron and albuterol treatments. Patient has also been covered for a possible suspected secondary bacterial infection with Levaquin 500 daily, Tylenol as needed.
[2021-04-15 14:00] VITALS: BP 108/66
[2021-04-15 14:15] VITALS: O2SAT 91
[2021-04-15 20:00] VITALS: BP 105/58
[2021-04-16] MEDS: IPRATROPIUM 0.5MG/ALBUTEROL 2.5MG INH SOL UD 3ML (DUONEB) NEB SCH ×4 (02:00→20:51)
[2021-04-16 04:00] VITALS: BP 117/56
[2021-04-16] MEDS: LevoFLOXacin 500 MG TABLET PO SCH (06:30)
[2021-04-16 07:03] LABS: BASO % 0.1 % (0.0-1.0); HEMATOCRIT 40.7 % (42.0-52.0); LYMPH # 0.7 10^3/uL (1.5-5.0); LYMPH % 7.1 % (24.0-44.0); MEAN CORPUSCULAR HEMOGLOBIN 31.6 pg (27.0-33.0); MEAN CORPUSCULAR HGB CONC 34.4 g/dl (32.0-36.5); MEAN CORPUSCULAR VOLUME 91.9 fl (80.0-96.0); MONO # 0.5 10^3/uL (0.0-0.8); NEUTROPHILS # 9.1 10^3/uL (1.5-8.5); NEUTROPHILS % 87.2 % (36.0-66.0); PLATELET COUNT, AUTOMATED 338 10^3/uL (150-450); RED BLOOD COUNT 4.43 10^6/uL (4.30-6.10); WHITE BLOOD COUNT 10.5 10^3/uL (4.0-10.0)
[2021-04-16 07:17] LABS: INR 1.29; PARTIAL THROMBOPLASTIN TIME 29.4 SECONDS (25.9-37.0); PROTHROMBIN TIME 16.5 SECONDS (12.7-14.5)
[2021-04-16 07:29] LABS: ALT/SGPT 30 U/L (12-78); BILIRUBIN,DIRECT 0.3 MG/DL (0.0-0.2); BILIRUBIN,TOTAL 0.7 MG/DL (0.2-1.0); BLOOD UREA NITROGEN 16 MG/DL (7-18); CALCIUM LEVEL 8.6 MG/DL (8.5-10.1); CARBON DIOXIDE LEVEL 29 MEQ/L (21-32); CHLORIDE LEVEL 103 MEQ/L (98-107); CPK CREATINE PHOSPHOKINASE 46 U/L (39-308); FERRITIN 1281 NG/ML (26-388); GLOMERULAR FILTRATION RATE > 60.0 (>56); GLUCOSE, FASTING 116 MG/DL (70-100); LDH LACTATE DEHYDROGENASE 465 U/L (87-241); MAGNESIUM LEVEL 1.9 MG/DL (1.8-2.4); NT-PRO BNP 317 PG/ML (<125); POTASSIUM SERUM 3.5 MEQ/L (3.5-5.1); SODIUM LEVEL 134 MEQ/L (136-145); TOTAL PROTEIN 5.8 GM/DL (6.4-8.2); TROPONIN I < 0.02 NG/ML (< 0.10)
[2021-04-16 08:00] VITALS: O2SAT 92
[2021-04-16] MEDS: dexameTHASONE 4 MG/ML 1ML VIAL (J1100 PER 1MG) IV SCH (08:47)
[2021-04-16] MEDS: BARICITINIB 2MG TABLET (OLUMIANT) FOR EUA PO SCH (08:47)
[2021-04-16] MEDS: ENOXAPARIN 40MG/0.4ML SYRINGE (J1650 PER 10MG) SC SCH (08:48)
[2021-04-16 12:00] VITALS: BP 100/59
[2021-04-16 20:00] VITALS: BP 115/61; O2SAT 98
[2021-04-16] MEDS: dexameTHASONE 20MG/5ML VIAL (J1100 PER 1MG) IV SCH (20:16)
--- NOTE | 2021-04-16 21:22 | IPN ---
PROGRESS NOTE DATE: 04/16/2021 SUBJECTIVE: Per nursing, the patient decompensates with his oxygen saturation dropping down to 80 to 85% when the patient speaks, despite Vapotherm, FiO2 of 80%. The patient continues to have dyspnea on exertion but feels that his breathing is improved, however he remains at 80% FiO2 Vapotherm with 30 liter flow rate. The patient denies any nausea, vomiting, abdominal pain, headache, changes in vision, dysphagia or diarrhea. OBJECTIVE: PHYSICAL EXAMINATION: VITAL SIGNS: Temperature 99.4, pulse 89, respiratory rate 20, blood pressure 100/59, oxygen saturation 94% on 80% FiO2, 25% flow rate Vapotherm. GENERAL APPEARANCE: Awake, alert, oriented with positive respiratory distress, desaturating down to 80-82% on Vapotherm while speaking 3-4 word sentences. The patient does use respiratory accessory muscles. He has no cyanosis, icterus, jaundice or pallor. HEENT: Dry mucous membranes. NECK: No JVD, thyromegaly or cervical lymphadenopathy. LUNGS: Diminished. HEART: S1, S2, sinus rhythm. ABDOMEN: Soft, nontender, nondistended. EXTREMITIES: No pitting edema. LABORATORY DATA: Reviewed. IMAGING STUDIES: Reviewed. ASSESSMENT: This is a 56-year-old male with a history of B-cell lymphoma, status post chemoradiation 10 years ago, in remission, who presented with dyspnea on exertion, weakness, dry cough without fever or chills, found to have bilateral infiltrates on chest x-ray and admitted for acute hypoxic respiratory failure secondary to coronavirus pneumonia, ARDS and systemic inflammatory response. IMPRESSION: 1. Coronavirus pneumonia, ARDS, systemic inflammatory response. 2. Acute hypoxic respiratory failure secondary to coronavirus infection. PLAN: The patient is being weaned down from Vapotherm currently 80% FiO2. He is continued on Remdesivir, Dexamethasone, Baricitinib. Per Electrical Instrument Technician, Dr. Calderon, he has found better response and improved oxygenation when steroids are increased. Therefore Decadron will be increased to twice daily dosing. Continue on Lovenox, Albuterol treatments and also on antibiotics for suspected secondary bacterial pneumonia.
[2021-04-17] MEDS: IPRATROPIUM 0.5MG/ALBUTEROL 2.5MG INH SOL UD 3ML (DUONEB) NEB SCH ×4 (02:00→19:58)
[2021-04-17] MEDS: LevoFLOXacin 500 MG TABLET PO SCH (05:48)
[2021-04-17 06:00] VITALS: BP 112/69
[2021-04-17 06:04] LABS: BASO % 0.1 % (0.0-1.0); HEMATOCRIT 41.2 % (42.0-52.0); HEMOGLOBIN 14.5 g/dl (13.5-17.5); LYMPH # 0.7 10^3/uL (1.5-5.0); LYMPH % 7.9 % (24.0-44.0); MEAN CORPUSCULAR HEMOGLOBIN 31.7 pg (27.0-33.0); MEAN CORPUSCULAR HGB CONC 35.2 g/dl (32.0-36.5); MEAN CORPUSCULAR VOLUME 90.2 fl (80.0-96.0); MONO # 0.4 10^3/uL (0.0-0.8); MONO % 4.6 % (2.0-8.0); NEUTROPHILS # 7.3 10^3/uL (1.5-8.5); NEUTROPHILS % 86.8 % (36.0-66.0); PLATELET COUNT, AUTOMATED 340 10^3/uL (150-450); RED BLOOD COUNT 4.57 10^6/uL (4.30-6.10); WHITE BLOOD COUNT 8.4 10^3/uL (4.0-10.0)
[2021-04-17 06:27] LABS: BLOOD UREA NITROGEN 18 MG/DL (7-18); CALCIUM LEVEL 9.1 MG/DL (8.5-10.1); CARBON DIOXIDE LEVEL 30 MEQ/L (21-32); CHLORIDE LEVEL 104 MEQ/L (98-107); CREATININE FOR GFR 0.86 MG/DL (0.70-1.30); GLOMERULAR FILTRATION RATE > 60.0 (>56); GLUCOSE, FASTING 149 MG/DL (70-100); MAGNESIUM LEVEL 2.3 MG/DL (1.8-2.4); POTASSIUM SERUM 4.2 MEQ/L (3.5-5.1); SODIUM LEVEL 135 MEQ/L (136-145)
[2021-04-17 08:00] VITALS: O2SAT 92
[2021-04-17] MEDS: dexameTHASONE 20MG/5ML VIAL (J1100 PER 1MG) IV SCH ×2 (08:56→19:59)
[2021-04-17] MEDS: ENOXAPARIN 40MG/0.4ML SYRINGE (J1650 PER 10MG) SC SCH (08:56)
[2021-04-17] MEDS: BARICITINIB 2MG TABLET (OLUMIANT) FOR EUA PO SCH (08:56)
--- NOTE | 2021-04-17 09:25 | IPNPDOC ---
Date Seen The patient was seen on 04/17/21. Progress Note SUBJECTIVE: Patient is cough seems loose he says Zantac he can expectorated a little easier. Denies any fever chills anosmia and dysgeusia. He continues to have dyspnea exertion and conversational dyspnea dropping his saturations to 84% when he speaks 6-7 words. No chest pain pressure tightness diarrhea headaches nausea vomiting. Decreased appetite but tolerating his food.. FiO2 decreased from 80 to 60% today OBJECTIVE: PHYSICAL EXAMINATION: VITAL SIGNS: See below GENERAL APPEARANCE: Conversational dyspnea of 5-6 words Recovers to 90% on pulse ox after resting for 2 minutes HEENT: Dry mucous membranes. NECK: No JVD, thyromegaly or cervical lymphadenopathy. LUNGS: Diminished. HEART: S1, S2, sinus rhythm. ABDOMEN: Soft, nontender, nondistended. EXTREMITIES: No pitting edema. LABORATORY DATA: Reviewed. IMAGING STUDIES: Reviewed. ASSESSMENT: This is a 56-year-old male with a history of B-cell lymphoma, status post chemoradiation 10 years ago, in remission, who presented with dyspnea on exertion, weakness, dry cough without fever or chills, found to have bilateral infiltrates on chest x-ray and admitted for acute hypoxic respiratory failure secondary to coronavirus pneumonia, ARDS and systemic inflammatory response. IMPRESSION: 1. Coronavirus pneumonia, ARDS, systemic inflammatory response. 2. Acute hypoxic respiratory failure secondary to coronavirus infection. PLAN: Patient is Decadron had been increased to 10 mg IV every 12. On antivirals Decadron antibiotics Vapotherm to keep O2 sat at 90%. Slight clinical improvement with being able to wean the FiO2 from 80% to 60%. VS, I&O, 24H, Fishbone Vital Signs/I&O Vital Signs Date Time Temp Pulse Resp B/P (MAP) Pulse Ox O2 Delivery O2 Flow Rate FiO2 04/17/21 08:00 90 HVNI-Vapotherm 25.0 60 04/17/21 06:00 97.8 72 18 112/69 (83) I&O- Last 24 Hours up to 6 AM 04/17/21 06:00 Intake Total 2220 ml Output Total 2400 ml Balance -180 ml Laboratory Data 24H LABS Laboratory Tests 2 04/17/21 05:53: Immature Granulocyte % (Auto) 0.6, Neutrophils (%) (Auto) 86.8H, Lymphocytes (%) (Auto) 7.9L, Monocytes (%) (Auto) 4.6, Eosinophils (%) (Auto) 0.0, Basophils (%) (Auto) 0.1, Neutrophils # (Auto) 7.3, Lymphocytes # (Auto) 0.7L, Monocytes # (Auto) 0.4, Eosinophils # (Auto) 0.0, Basophils # (Auto) 0.0, Nucleated Red Blood Cells % (auto) 0.0, Anion Gap 1L, Glomerular Filtration Rate > 60.0, Calcium Level 9.1, Magnesium Level 2.3 CBC/BMP Laboratory Tests 04/17/21 05:53 Microbiology Microbiology 04/10/21 Blood Culture - Final, Complete NO GROWTH AFTER 5 DAYS 04/10/21 Respiratory Virus Panel (PCR) ([facility]) - Final, Complete SARS-CoV-2 (COVID 19) 04/10/21 Blood Culture - Final, Complete NO GROWTH AFTER 5 DAYS SCOTT BUENROSTRO MD Apr 17, 2021 09:25
[2021-04-17 14:00] VITALS: BP 97/63
[2021-04-17 17:04] VITALS: BP 98/56
[2021-04-17 19:59] VITALS: BP 103/60
[2021-04-17 20:00] VITALS: O2SAT 90
[2021-04-18] MEDS: IPRATROPIUM 0.5MG/ALBUTEROL 2.5MG INH SOL UD 3ML (DUONEB) NEB SCH ×4 (01:16→19:48)
[2021-04-18 04:00] VITALS: O2SAT 94
[2021-04-18] MEDS: LevoFLOXacin 500 MG TABLET PO SCH (05:07)
[2021-04-18 05:30] VITALS: BP 113/66
[2021-04-18 08:34] LABS: BASO % 0.1 % (0.0-1.0); HEMATOCRIT 41.2 % (42.0-52.0); HEMOGLOBIN 14.1 g/dl (13.5-17.5); LYMPH # 0.9 10^3/uL (1.5-5.0); LYMPH % 8.3 % (24.0-44.0); MEAN CORPUSCULAR HEMOGLOBIN 31.4 pg (27.0-33.0); MEAN CORPUSCULAR HGB CONC 34.2 g/dl (32.0-36.5); MEAN CORPUSCULAR VOLUME 91.8 fl (80.0-96.0); MONO # 0.5 10^3/uL (0.0-0.8); MONO % 4.8 % (2.0-8.0); NEUTROPHILS # 8.8 10^3/uL (1.5-8.5); NEUTROPHILS % 86.1 % (36.0-66.0); PLATELET COUNT, AUTOMATED 381 10^3/uL (150-450); RED BLOOD COUNT 4.49 10^6/uL (4.30-6.10); WHITE BLOOD COUNT 10.2 10^3/uL (4.0-10.0)
[2021-04-18 08:45] LABS: BLOOD UREA NITROGEN 17 MG/DL (7-18); CALCIUM LEVEL 8.9 MG/DL (8.5-10.1); CARBON DIOXIDE LEVEL 28 MEQ/L (21-32); CHLORIDE LEVEL 103 MEQ/L (98-107); CREATININE FOR GFR 0.89 MG/DL (0.70-1.30); GLOMERULAR FILTRATION RATE > 60.0 (>56); GLUCOSE, FASTING 99 MG/DL (70-100); MAGNESIUM LEVEL 2.2 MG/DL (1.8-2.4); POTASSIUM SERUM 4.2 MEQ/L (3.5-5.1); SODIUM LEVEL 137 MEQ/L (136-145)
[2021-04-18] MEDS: BARICITINIB 2MG TABLET (OLUMIANT) FOR EUA PO SCH (09:19)
[2021-04-18] MEDS: ENOXAPARIN 40MG/0.4ML SYRINGE (J1650 PER 10MG) SC SCH (09:20)
[2021-04-18] MEDS: dexameTHASONE 20MG/5ML VIAL (J1100 PER 1MG) IV SCH ×2 (09:20→21:41)
[2021-04-18 15:00] VITALS: BP 110/70
[2021-04-18 20:00] VITALS: O2SAT 91
[2021-04-18 21:42] VITALS: BP 118/63
[2021-04-19] VITALS (10 sets, daily range): BP systolic 100–114; BP diastolic 58–65; O2SAT 88–94
[2021-04-19] MEDS: IPRATROPIUM 0.5MG/ALBUTEROL 2.5MG INH SOL UD 3ML (DUONEB) NEB SCH ×4 (02:33→20:01)
[2021-04-19] MEDS: LevoFLOXacin 500 MG TABLET PO SCH (06:28)
[2021-04-19] MEDS: BARICITINIB 2MG TABLET (OLUMIANT) FOR EUA PO SCH (09:25)
[2021-04-19] MEDS: dexameTHASONE 20MG/5ML VIAL (J1100 PER 1MG) IV SCH ×2 (09:25→20:17)
[2021-04-19] MEDS: ENOXAPARIN 40MG/0.4ML SYRINGE (J1650 PER 10MG) SC SCH (09:26)
[2021-04-19 09:50] LABS: BASO % 0.1 % (0.0-1.0); HEMATOCRIT 41.8 % (42.0-52.0); HEMOGLOBIN 14.3 g/dl (13.5-17.5); LYMPH # 0.8 10^3/uL (1.5-5.0); LYMPH % 7.9 % (24.0-44.0); MEAN CORPUSCULAR HEMOGLOBIN 31.1 pg (27.0-33.0); MEAN CORPUSCULAR HGB CONC 34.2 g/dl (32.0-36.5); MEAN CORPUSCULAR VOLUME 90.9 fl (80.0-96.0); MONO # 0.6 10^3/uL (0.0-0.8); MONO % 5.5 % (2.0-8.0); NEUTROPHILS % 85.6 % (36.0-66.0); PLATELET COUNT, AUTOMATED 377 10^3/uL (150-450); WHITE BLOOD COUNT 10.5 10^3/uL (4.0-10.0)
[2021-04-19 10:01] LABS: INR 1.13; PROTHROMBIN TIME 14.9 SECONDS (12.7-14.5)
[2021-04-19 10:02] LABS: PARTIAL THROMBOPLASTIN TIME 28.8 SECONDS (25.9-37.0)
[2021-04-19 10:04] LABS: D-DIMER QUANT 1701.05 ng/ml (<500)
[2021-04-19 10:11] LABS: ERYTHROCYTE SEDIMENTATION RATE 40 mm/hr (0-20)
[2021-04-19 10:13] LABS: ALBUMIN 2.1 GM/DL (3.2-5.2); ALT/SGPT 29 U/L (12-78); BILIRUBIN,TOTAL 0.6 MG/DL (0.2-1.0); BLOOD UREA NITROGEN 19 MG/DL (7-18); C REACTIVE PROTEIN QUANTITATIV 1.67 MG/DL (0.00-0.30); CALCIUM LEVEL 8.6 MG/DL (8.5-10.1); CARBON DIOXIDE LEVEL 27 MEQ/L (21-32); CHLORIDE LEVEL 104 MEQ/L (98-107); CK-MB VALUE MASS 1.8 NG/ML (<3.6); CPK CREATINE PHOSPHOKINASE 46 U/L (39-308); CREATININE FOR GFR 0.98 MG/DL (0.70-1.30); FERRITIN 970 NG/ML (26-388); GLOMERULAR FILTRATION RATE > 60.0 (>56); GLUCOSE, FASTING 120 MG/DL (70-100); LDH LACTATE DEHYDROGENASE 331 U/L (87-241); MB/CK RELATIVE INDEX 3.91 (< OR =4); NT-PRO BNP 169 PG/ML (<125); SODIUM LEVEL 138 MEQ/L (136-145); TOTAL PROTEIN 5.4 GM/DL (6.4-8.2); TROPONIN I < 0.02 NG/ML (< 0.10)
--- NOTE | 2021-04-19 11:41 | IPNPDOC ---
Date Seen The patient was seen on 04/19/21. Progress Note SUBJECTIVE: Patient has less dyspnea, and per nursing at the bedside had not dropped his oxygen saturations below 88% while conversing for about 1 hour. His cough has improved, with minimal sputum production. Afebrile. Denies chills, anosmia, dysgeusia, nausea, vomiting, abdominal pain. OBJECTIVE: PHYSICAL EXAMINATION: VITAL SIGNS: See below GENERAL APPEARANCE: No conversational dyspnea. 90% on pulse ox -92% while speaking. Able to complete his sentences No pallor no cyanosis HEENT: Moist mucous membranes. NECK: No JVD, thyromegaly or cervical lymphadenopathy. LUNGS: Diminished. HEART: S1, S2, sinus rhythm. ABDOMEN: Soft, nontender, nondistended. EXTREMITIES: No pitting edema. LABORATORY DATA: Reviewed. IMAGING STUDIES: Reviewed. ASSESSMENT: This is a 56-year-old male with a history of B-cell lymphoma, status post chemoradiation 10 years ago, in remission, who presented with dyspnea on exertion, weakness, dry cough without fever or chills, found to have bilateral infiltrates on chest x-ray and admitted for acute hypoxic respiratory failure secondary to coronavirus pneumonia, ARDS and systemic inflammatory response. IMPRESSION: 1. Coronavirus pneumonia, ARDS, systemic inflammatory response. 2. Acute hypoxic respiratory failure secondary to coronavirus infection. PLAN: Patient is Decadron had been increased to 10 mg IV every 12. On antivirals Decadron antibiotics Vapotherm to keep O2 sat at 90%. Patient's FiO2 has been decreased from 80% to 40% with significant Clinical improvement over the past 3 days since his steroids have been increased to twice daily dosing. He currently does not have any conversational dyspnea, and does not appear to be desaturating Below 88% when he speaks. Were hoping to take him off the Vapotherm over the next 12 to 24 hours. VS, I&O, 24H, Fishbone Vital Signs/I&O Vital Signs Date Time Temp Pulse Resp B/P (MAP) Pulse Ox O2 Delivery O2 Flow Rate FiO2 04/19/21 07:57 90 HVNI-Vapotherm 20.0 40 04/19/21 06:30 96.3 57 18 112/65 (81) I&O- Last 24 Hours up to 6 AM 04/19/21 06:00 Intake Total 2160 ml Output Total 2100 ml Balance 60 ml Laboratory Data 24H LABS Laboratory Tests 2 04/19/21 09:32: Immature Granulocyte % (Auto) 0.9, Neutrophils (%) (Auto) 85.6H, Lymphocytes (%) (Auto) 7.9L, Monocytes (%) (Auto) 5.5, Eosinophils (%) (Auto) 0.0, Basophils (%) (Auto) 0.1, Neutrophils # (Auto) 9.0H, Lymphocytes # (Auto) 0.8L, Monocytes # (Auto) 0.6, Eosinophils # (Auto) 0.0, Basophils # (Auto) 0.0, Nucleated Red Blood Cells % (auto) 0.0, Erythrocyte Sedimentation Rate 40H, Prothrombin Time 14.9H, Prothromb Time International Ratio 1.13, Activated Partial Thromboplast Time 28.8, Fibrinogen 611H, D-Dimer, Quantitative 1701.05H, Anion Gap 7L, G lomerular Filtration Rate > 60.0, Calcium Level 8.6, Ferritin 970H, Total Bilirubin 0.6, Aspartate Amino Transf (AST/SGOT) 14, Alanine Aminotransferase (ALT/SGPT) 29, Alkaline Phosphatase 48, Lactate Dehydrogenase 331H, Total Creatine Kinase 46, Creatine Kinase MB 1.8, Creatine Kinase MB Relative Index 3.91, Troponin I < 0.02, C-Reactive Protein, Quantitative 1.67H, BC-Wco-G-Type Natriuretic Peptide 169H, Total Protein 5.4L, Albumin 2.1L, Albumin/Globulin Ratio 0.6 CBC/BMP Laboratory Tests 04/19/21 09:32 Microbiology Microbiology 04/10/21 Blood Culture - Final, Complete NO GROWTH AFTER 5 DAYS 04/10/21 Respiratory Virus Panel (PCR) ([facility]) - Final, Complete SARS-CoV-2 (COVID 19) 04/10/21 Blood Culture - Final, Complete NO GROWTH AFTER 5 DAYS SCOTT BUENROSTRO MD Apr 19, 2021 11:31
[2021-04-20] VITALS (10 sets, daily range): BP systolic 83–98; BP diastolic 57–66; O2SAT 90–97
[2021-04-20] MEDS: IPRATROPIUM 0.5MG/ALBUTEROL 2.5MG INH SOL UD 3ML (DUONEB) NEB SCH ×4 (02:40→19:53)
[2021-04-20 07:04] LABS: BASO % 0.2 % (0.0-1.0); HEMATOCRIT 43.3 % (42.0-52.0); HEMOGLOBIN 14.6 g/dl (13.5-17.5); LYMPH # 0.8 10^3/uL (1.5-5.0); LYMPH % 6.7 % (24.0-44.0); MEAN CORPUSCULAR HEMOGLOBIN 31.3 pg (27.0-33.0); MEAN CORPUSCULAR HGB CONC 33.7 g/dl (32.0-36.5); MEAN CORPUSCULAR VOLUME 92.7 fl (80.0-96.0); MONO # 0.6 10^3/uL (0.0-0.8); MONO % 5.2 % (2.0-8.0); NEUTROPHILS # 10.5 10^3/uL (1.5-8.5); NEUTROPHILS % 86.7 % (36.0-66.0); PLATELET COUNT, AUTOMATED 368 10^3/uL (150-450); RED BLOOD COUNT 4.67 10^6/uL (4.30-6.10); WHITE BLOOD COUNT 12.1 10^3/uL (4.0-10.0)
[2021-04-20 07:20] LABS: INR 1.12; PARTIAL THROMBOPLASTIN TIME 27.5 SECONDS (25.9-37.0); PROTHROMBIN TIME 14.9 SECONDS (12.7-14.5)
[2021-04-20 07:23] LABS: D-DIMER QUANT 1253.37 ng/ml (<500)
[2021-04-20 07:31] LABS: ALBUMIN 2.1 GM/DL (3.2-5.2); ALT/SGPT 39 U/L (12-78); BILIRUBIN,TOTAL 0.4 MG/DL (0.2-1.0); BLOOD UREA NITROGEN 20 MG/DL (7-18); C REACTIVE PROTEIN QUANTITATIV 1.01 MG/DL (0.00-0.30); CALCIUM LEVEL 8.5 MG/DL (8.5-10.1); CARBON DIOXIDE LEVEL 26 MEQ/L (21-32); CHLORIDE LEVEL 105 MEQ/L (98-107); CK-MB VALUE MASS 1.3 NG/ML (<3.6); CPK CREATINE PHOSPHOKINASE 50 U/L (39-308); CREATININE FOR GFR 0.91 MG/DL (0.70-1.30); FERRITIN 830 NG/ML (26-388); GLOMERULAR FILTRATION RATE > 60.0 (>56); GLUCOSE, FASTING 103 MG/DL (70-100); LDH LACTATE DEHYDROGENASE 267 U/L (87-241); POTASSIUM SERUM 4.1 MEQ/L (3.5-5.1); SODIUM LEVEL 136 MEQ/L (136-145); TOTAL PROTEIN 5.7 GM/DL (6.4-8.2); TROPONIN I < 0.02 NG/ML (< 0.10)
[2021-04-20 08:11] LABS: ERYTHROCYTE SEDIMENTATION RATE 25 mm/hr (0-20)
--- NOTE | 2021-04-20 09:02 | IPN ---
PROGRESS NOTE DATE: 04/18/2021 SUBJECTIVE: Patient still complains of dyspnea on exertion with O2 saturation dropping to 82-84% on Vapotherm, FiO2 40% when he ambulates from bed to the bathroom. Cough is productive of white sputum, but less now. Patient denies any nausea, vomiting, abdominal pain, loss of taste or smell. Afebrile, no chills overnight. OBJECTIVE: Vital signs: Temperature 97.5, pulse 103, respiratory rate 18, blood pressure 113/66, 98% on Vapotherm, flow rate 20%, FiO2 45. General: Awake, alert, oriented times 3, 5-7 word conversational dyspnea, positive use or respiratory accessory muscles. HEENT: No pallor, icterus, jaundice. No stridor. Moist mucous membranes. Neck: No JVD, no thyromegaly. Lungs: Lungs are diminished. Heart: S1 and S2 sinus tachycardia. Abdomen: Soft, nontender, nondistended. Extremities: No pitting edema. LABORATORY DATA/IMAGING STUDIES/MICROBIOLOGY: Reviewed. ASSESSMENT: This 56-year-old male with history of B cell lymphoma status post chemoradiation 10 years ago in remission presented with dyspnea on exertion, weakness, dry cough without fever or chills, found to have bilateral infiltrates on chest x-ray and hypoxic requiring supplemental oxygen. Acute issues: 1. Acute hypoxic respiratory failure secondary to Coronavirus pneumonia. 2. ARDS. 3. Coronavirus pneumonia. 4. Systemic inflammation response. PLAN: Patient is continued on Decadron 10 mg I.V. q12h, nebulizer treatment and Levaquin. Patient has completed remdesivir. Continue with supplemental oxygen and continue titration down off the Vapotherm; currently down to 45% from 80% FiO2 earlier in the week. MTDD
[2021-04-20] MEDS: ENOXAPARIN 40MG/0.4ML SYRINGE (J1650 PER 10MG) SC SCH (09:46)
[2021-04-20] MEDS: dexameTHASONE 20MG/5ML VIAL (J1100 PER 1MG) IV SCH (09:46)
[2021-04-20] MEDS: BARICITINIB 2MG TABLET (OLUMIANT) FOR EUA PO SCH (09:46)
--- NOTE | 2021-04-20 11:37 | IPNPDOC ---
Date Seen The patient was seen on 04/20/21. Progress Note SUBJECTIVE: Patient is still dyspneic on exertion when walking from the bed to the bathroom but recovers quickly saturating 90% to 92% on 4 L nasal cannula No chest pain pressure tightness nausea vomiting diarrhea abdominal pain Denies loss of taste or smell or decrease in appetite OBJECTIVE: Vital signs: See below General: No distress speaks in full sentences HEENT: No pallor, icterus, jaundice. No stridor. Moist mucous membranes. Neck: No JVD, no thyromegaly. Lungs: Lungs are diminished. Heart: S1 and S2 sinus tachycardia. Abdomen: Soft, nontender, nondistended. Extremities: No pitting edema. LABORATORY DATA/IMAGING STUDIES/MICROBIOLOGY: Reviewed. ASSESSMENT: This 56-year-old male with history of B cell lymphoma status post chemoradiation 10 years ago in remission presented with dyspnea on exertion, weakness, dry cough without fever or chills, found to have bilateral infiltrates on chest x-ray and hypoxic requiring supplemental oxygen. Acute issues: 1. Acute hypoxic respiratory failure secondary to Coronavirus pneumonia. 2. ARDS. 3. Coronavirus pneumonia. 4. Suspected secondary bacterial infection PLAN: Patient completed IV remdesivir and oral Levaquin. He has been titrated down to 4 L of oxygen via nasal cannula. Physical therapy evaluation. Tapered Decadron. If stable on steroid taper may discharge home in the morning. [facility]O Vital Signs Date Time Temp Pulse Resp B/P (MAP) Pulse Ox O2 Delivery O2 Flow Rate FiO2 04/20/21 07:58 90 Nasal Cannula 4.0 04/20/21 07:45 30 04/20/21 04:11 96.6 85 18 96/62 (73) I&O- Last 24 Hours up to 6 AM 04/20/21 06:00 Intake Total 960 ml Output Total 1700 ml Balance -740 ml Laboratory Data 24H LABS Laboratory Tests 2 04/20/21 06:40: Immature Granulocyte % (Auto) 1.2, Neutrophils (%) (Auto) 86.7H, Lymphocytes (%) (Auto) 6.7L, Monocytes (%) (Auto) 5.2, Eosinophils (%) (Auto) 0.0, Basophils (%) (Auto) 0.2, Neutrophils # (Auto) 10.5H, Lymphocytes # (Auto) 0.8L, Monocytes # (Auto) 0.6, Eosinophils # (Auto) 0.0, Basophils # (Auto) 0.0, Nucleated Red Blood Cells % (auto) 0.0, Erythrocyte Sedimentation Rate 25H, Prothrombin Time 14.9H, Prothromb Time International Ratio 1.12, Activated Partial Thromboplast T rahul 27.5, Fibrinogen 472H, D-Dimer, Quantitative 1253.37H, Anion Gap 5L, Glomerular Filtration Rate > 60.0, Calcium Level 8.5, Ferritin 830H, Total Bilirubin 0.4, Aspartate Amino Transf (AST/SGOT) 16, Alanine Aminotransferase (ALT/SGPT) 39, Alkaline Phosphatase 62, Lactate Dehydrogenase 267H, Total Creatine Kinase 50, Creatine Kinase MB 1.3, Creatine Kinase MB Relative Index 2.60, Troponin I < 0.02, C-Reactive Protein, Quantitative 1.01H, Total Protein 5.7L, Albumin 2.1L, Albumin/Globulin Ratio 0.6 CBC/BMP Laboratory Tests 04/20/21 06:40 Microbiology Microbiology 04/10/21 Blood Culture - Final, Complete NO GROWTH AFTER 5 DAYS 04/10/21 Respiratory Virus Panel (PCR) ([facility]) - Final, Complete SARS-CoV-2 (COVID 19) 04/10/21 Blood Culture - Final, Complete NO GROWTH AFTER 5 DAYS SCOTT BUENROSTRO MD Apr 20, 2021 11:31
[2021-04-21] MEDS: IPRATROPIUM 0.5MG/ALBUTEROL 2.5MG INH SOL UD 3ML (DUONEB) NEB SCH ×3 (02:00→13:40)
[2021-04-21 06:00] VITALS: BP 119/71
[2021-04-21 07:52] VITALS: O2SAT 91
[2021-04-21] MEDS ORDERED: predniSONE 20 MG TAB PO SCH (09:00)
[2021-04-21] MEDS: ENOXAPARIN 40MG/0.4ML SYRINGE (J1650 PER 10MG) SC SCH (09:00)
[2021-04-21] MEDS: BARICITINIB 2MG TABLET (OLUMIANT) FOR EUA PO SCH (10:12)
[2021-04-21] MEDS ORDERED: PRED10TA2 PO (11:34)
--- NOTE | 2021-04-21 19:51 | DS.PDOC ---
Discharge Summary General Date of Admission Apr 10, 2021 at 11:51 Date of Discharge 04/21/21 Discharge Summary PROCEDURES PERFORMED DURING STAY: [None]. ADMITTING DIAGNOSES: Acute hypoxic respiratory failure secondary to Coronavirus pneumonia. ARDS Coronavirus pneumonia DISCHARGE DIAGNOSES: Acute hypoxic respiratory failure secondary to Coronavirus pneumonia. ARDS Coronavirus pneumonia COMPLICATIONS/CHIEF COMPLAINT: Covid, Acute Respiratory Failure With Hypoxia. HISTORY OF PRESENT ILLNESS: Patient is 56 years old male with 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 Patient stated that last Tuesday he was diagnosed with COVID-19 and he developed progressive weakness associated with dry cough. Today he developed increased shortness of breath. He denied fever or chills. In ER patient was found to have no leukocytosis sodium level of 130, potassium 3.4, ferritin 2521, procalcitonin 0.29, D-dimer 2283. Chest x-ray showed Patchy bilateral opacities consistent with COVID-19 pulmonary disease HOSPITAL COURSE: During the hospital stay patient received a course of rem desivir, baricitinib, dexamethasone. Patient developed ARDS with increased oxygen requirements to 40 L 100% FiO2. Subsequently respiration improved and his oxygen requirements decreased to 3 l today. Also patient received a course of Levaquin for possible bacterial pneumonia, procalcitonin was elevated to 0.29. Also patient received physical therapy. DISCHARGE MEDICATIONS: Please see below. ALLERGIES: Please see below. PHYSICAL EXAMINATION ON DISCHARGE: VITAL SIGNS: Please see below. LABORATORY DATA: Please see below. General: No distress speaks in full sentences HEENT: No pallor, icterus, jaundice. No stridor. Moist mucous membranes. Neck: No JVD, no thyromegaly. Lungs: Lungs are diminished. Heart: S1 and S2 sinus tachycardia. Abdomen: Soft, nontender, nondistended. Extremities: No pitting edema. IMAGING: See above PROGNOSIS: Fair ACTIVITY: [As tolerated]. DIET: Regular DISCHARGE PLAN: Home DISPOSITION: Home Health Service. ITEMS TO FOLLOWUP ON ON OUTPATIENT: Follow-up with PCP DISCHARGE CONDITION: [Stable]. TIME SPENT ON DISCHARGE: 40minutes. Vital Signs/I&Os Vital Signs Date Time Temp Pulse Resp B/P (MAP) Pulse Ox O2 Delivery O2 Flow Rate FiO2 04/21/21 08:00 4.0 04/21/21 07:52 91 Nasal Cannula 04/21/21 06:00 97.2 61 18 119/71 (87) 04/20/21 07:45 30 I&O- Last 24 Hours up to 6 AM 04/21/21 06:00 Intake Total 720 ml Output Total 475 ml Balance 245 ml Discharge Medications Scheduled Ascorbic Acid (Vitamin C) 500 Mg Capsule.er, 500 MG PO DAILY, (Reported) Prednisone (Prednisone) 10 Mg Tablet, 10 MG PO TAPER Take 4 tabs daily x 3 days, then 3 tabs daily x 3 days, then 2 tabs daily x 3 days, then 1 tab daily x 3 days and stop Turmeric Root Extract (Turmeric) 500 Mg Capsule, 500 MG PO DAILY, (Reported) Ubidecarenone (Co Q-10) 200 Mg Capsule, 200 MG PO DAILY, (Reported) Zinc (Zinc) 50 Mg Tablet, 50 MG PO DAILY, (Reported) Allergies Coded Allergies: No Known Allergies (Unverified , 04/10/21) SANDRA DEVI DO Apr 21, 2021 19:51
== END 2021-04-21 14:17 | disposition home health service (06) | DRG 137 ==
LOC: M ED 09:08 → M ED INP 11:51 → ENRESERV 22:01 → M 4MAIN 23:07
PROVIDERS: ADMIT Internal Medicine; ATTEND General Practice
PROC: XW033E5 Introduction of Remdesivir Anti-infective into Peripheral Vein, Percutaneous Approach, New Technology Group 5 (ICD-10-PCS; principal; 2021-04-10)
PROC: 3E0333Z Introduction of Anti-inflammatory into Peripheral Vein, Percutaneous Approach (ICD-10-PCS; 2021-04-10)
DX: U07.1 COVID-19 (principal); J96.01 Acute respiratory failure with hypoxia; J12.82 Pneumonia due to coronavirus disease 2019; Z85.72 Personal history of non-Hodgkin lymphomas; Z92.3 Personal history of irradiation; Z92.21 Personal history of antineoplastic chemotherapy; M19.90 Unspecified osteoarthritis, unspecified site; Z96.653 Presence of artificial knee joint, bilateral; Z96.641 Presence of right artificial hip joint; Z79.899 Other long term (current) drug therapy

== ENCOUNTER → 2021-06-23 | Outpatient (CLI) | payer BC ==
[~2021-06-23] MED LIST: COQ1200C PO; PRED10TA2 PO; PURE500C5 PO; RA T500C2 PO; ZINC1TAB2 PO
--- NOTE | 2021-06-23 21:11 | REP ---
INDICATION: HX OF PNEUMONIA COMPARISON: 04/12/2021 TECHNIQUE: PA and lateral. FINDINGS: The mediastinum and cardiac silhouette are normal. The lung rocha demonstrate improved aeration but with continued irregular subtle bilateral opacities and increased markings which may reflect chronic changes or subtle residual airspace disease and correlation with physical examination and auscultation is required. No effusion. No pneumothorax. Skeletal structures intact. IMPRESSION: Possible acute and or chronic changes with improvement from prior examinations noted. Clinical correlation is recommended along with continued follow-up. <Electronically signed by Shad Cruz > 06/23/21 1102
== END ==
LOC: M ADAMS 13:36
PROVIDERS: ATTEND Physician Assistant
DX: Z87.01 Personal history of pneumonia (recurrent) (principal)

== ENCOUNTER → 2021-08-24 | Outpatient (CLI) | payer BC, OTHER | LOC: M ADAMS 09:43 | PROVIDERS: ATTEND Physician Assistant | DX: R93.89 Abnormal findings on diagnostic imaging of other specified body structures (principal) ==

== ENCOUNTER → 2021-08-25 | Outpatient (REF) | payer OTHER ==
[2021-08-25 13:10] LABS: BASO % 0.3 % (0.0-1.0); EOS # 0.1 10^3/uL (0.0-0.5); EOS % 0.8 % (0.0-3.0); HEMATOCRIT 47.3 % (42.0-52.0); LYMPH # 1.4 10^3/uL (1.5-5.0); LYMPH % 18.6 % (24.0-44.0); MEAN CORPUSCULAR HEMOGLOBIN 31.4 pg (27.0-33.0); MEAN CORPUSCULAR HGB CONC 33.8 g/dl (32.0-36.5); MEAN CORPUSCULAR VOLUME 92.7 fl (80.0-96.0); MONO # 0.6 10^3/uL (0.0-0.8); MONO % 7.4 % (2.0-8.0); NEUTROPHILS # 5.5 10^3/uL (1.5-8.5); NEUTROPHILS % 72.8 % (36.0-66.0); PLATELET COUNT, AUTOMATED 207 10^3/uL (150-450); WHITE BLOOD COUNT 7.6 10^3/uL (4.0-10.0)
[2021-08-25 13:50] LABS: ALBUMIN 3.9 GM/DL (3.2-5.2); ALT/SGPT 41 U/L (12-78); BILIRUBIN,TOTAL 0.5 MG/DL (0.2-1.0); BLOOD UREA NITROGEN 16 MG/DL (7-18); CALCIUM LEVEL 8.8 MG/DL (8.5-10.1); CARBON DIOXIDE LEVEL 31 MEQ/L (21-32); CHLORIDE LEVEL 108 MEQ/L (98-107); CHOLESTEROL LEVEL 126 MG/DL (<200); CREATININE FOR GFR 1.08 MG/DL (0.70-1.30); GLOMERULAR FILTRATION RATE > 60.0 (>56); GLUCOSE, FASTING 76 MG/DL (70-100); HDL CHOLESTEROL 45 MG/DL (>40); LDL CHOLESTEROL 55 MG/DL (<100); NON-HDL-C 81 MG/DL; POTASSIUM SERUM 4.6 MEQ/L (3.5-5.1); SODIUM LEVEL 141 MEQ/L (136-145); TOTAL PROTEIN 6.6 GM/DL (6.4-8.2); TRIGLYCERIDES LEVEL 131 MG/DL (<150)
[2021-08-25 14:17] LABS: HEMOGLOBIN A1c 5.4 %
== END ==
LOC: M SFHCADAM 08:02
PROVIDERS: ATTEND Physician Assistant
DX: Z86.16 Personal history of COVID-19 (principal); Z85.72 Personal history of non-Hodgkin lymphomas; Z13.220 Encounter for screening for lipoid disorders; Z82.49 Family history of ischemic heart disease and other diseases of the circulatory system; Z13.1 Encounter for screening for diabetes mellitus

== ENCOUNTER → 2022-04-28 | Outpatient (REF) | payer OTHER ==
[~2022-04-28] MED LIST changes: +ASCO500C3 PO; -PURE500C5 PO
[2022-04-28 13:07] LABS: BASO % 0.5 % (0.0-1.0); EOS # 0.1 10^3/uL (0.0-0.5); EOS % 1.2 % (0.0-3.0); HEMATOCRIT 47.5 % (42.0-52.0); HEMOGLOBIN 15.7 g/dl (13.5-17.5); LYMPH # 1.9 10^3/uL (1.5-5.0); LYMPH % 28.9 % (24.0-44.0); MEAN CORPUSCULAR HEMOGLOBIN 31.8 pg (27.0-33.0); MEAN CORPUSCULAR HGB CONC 33.1 g/dl (32.0-36.5); MEAN CORPUSCULAR VOLUME 96.3 fl (80.0-96.0); MONO # 0.6 10^3/uL (0.0-0.8); MONO % 8.7 % (2.0-8.0); NEUTROPHILS # 3.9 10^3/uL (1.5-8.5); NEUTROPHILS % 60.5 % (36.0-66.0); PLATELET COUNT, AUTOMATED 229 10^3/uL (150-450); RED BLOOD COUNT 4.93 10^6/uL (4.30-6.10); WHITE BLOOD COUNT 6.4 10^3/uL (4.0-10.0)
[2022-04-28 14:16] LABS: ALBUMIN 4.2 GM/DL (3.2-5.2); ALT/SGPT 46 U/L (12-78); BILIRUBIN,TOTAL 0.6 MG/DL (0.2-1.0); BLOOD UREA NITROGEN 16 MG/DL (7-18); CARBON DIOXIDE LEVEL 28 MEQ/L (21-32); CHLORIDE LEVEL 106 MEQ/L (98-107); CREATININE FOR GFR 1.09 MG/DL (0.70-1.30); GLOMERULAR FILTRATION RATE > 60.0 (>56); GLUCOSE, FASTING 86 MG/DL (70-100); POTASSIUM SERUM 5.2 MEQ/L (3.5-5.1); SODIUM LEVEL 142 MEQ/L (136-145); TOTAL PROTEIN 6.9 GM/DL (6.4-8.2)
== END ==
LOC: M SFHCADAM 08:12
PROVIDERS: ATTEND Physician Assistant
DX: Z12.5 Encounter for screening for malignant neoplasm of prostate (principal); Z86.16 Personal history of COVID-19; Z85.72 Personal history of non-Hodgkin lymphomas

== ENCOUNTER → 2022-06-06 | Outpatient (CLI) | payer OTHER ==
[~2022-06-06] MED LIST changes: +D3 M1CAP2 PO; +GALZ50CA PO; +GNP250TA9 PO
== END ==
LOC: M LABSMTC 10:23
PROVIDERS: ATTEND Anesthesiology
DX: Z01.812 Encounter for preprocedural laboratory examination (principal); Z11.52 Encounter for screening for COVID-19

== ENCOUNTER 2022-06-09 07:25 | Day surgery (SDC) | payer OTHER ==
[~2022-06-09] VITALS: Ht 170.2 cm; Wt 75.3 kg
[~2022-06-09 07:25] MED LIST changes: +NS 1,000 ML IV ONE
[2022-06-09] MEDS ORDERED: LIDOCAINE 2% 100MG/5ML SDV (FOR ANES.) As Ordered ONE (08:46)
[2022-06-09] MEDS ORDERED: propofoL 200 MG/20 ML VIAL As Ordered ONE (08:46)
[2022-06-09 09:19] VITALS: BP 109/69
== END 2022-06-09 09:21 | disposition home or self-care (01) ==
LOC: M OPP 07:25
PROVIDERS: ATTEND Surgery
DX: Z86.010 Personal history of colon polyps (principal); D12.4 Benign neoplasm of descending colon; K64.0 First degree hemorrhoids; K57.30 Diverticulosis of large intestine without perforation or abscess without bleeding; Z79.82 Long term (current) use of aspirin; Z85.72 Personal history of non-Hodgkin lymphomas; Z92.21 Personal history of antineoplastic chemotherapy; Z92.3 Personal history of irradiation

== ENCOUNTER → 2022-06-18 | Outpatient (CLI) | payer OTHER ==
[~2022-06-18] MED LIST changes: -NS 1,000 ML IV ONE
== END ==
LOC: M ADAMS 10:17
PROVIDERS: ATTEND Physician Assistant
DX: M25.751 Osteophyte, right hip (principal)

== ENCOUNTER → 2023-04-25 | Outpatient (REF) | payer OTHER ==
[2023-04-25 13:15] LABS: BASO % 0.3 % (0.0-1.0); EOS # 0.1 10^3/uL (0.0-0.5); EOS % 2.3 % (0.0-3.0); HEMATOCRIT 45.9 % (42.0-52.0); HEMOGLOBIN 15.4 g/dl (13.5-17.5); LYMPH # 1.6 10^3/uL (1.5-5.0); LYMPH % 27.4 % (24.0-44.0); MEAN CORPUSCULAR HGB CONC 33.6 g/dl (32.0-36.5); MEAN CORPUSCULAR VOLUME 95.2 fl (80.0-96.0); MONO # 0.4 10^3/uL (0.0-0.8); MONO % 7.3 % (2.0-8.0); NEUTROPHILS # 3.6 10^3/uL (1.5-8.5); NEUTROPHILS % 62.5 % (36.0-66.0); PLATELET COUNT, AUTOMATED 205 10^3/uL (150-450); RED BLOOD COUNT 4.82 10^6/uL (4.30-6.10); WHITE BLOOD COUNT 5.7 10^3/uL (4.0-10.0)
[2023-04-25 13:48] LABS: ALBUMIN 4.2 G/DL (3.2-5.2); ALKALINE PHOSPHATASE 72 U/L (46-116); ALT/SGPT 35 U/L (7.0-40); AST/SGOT 32 U/L (<34); BILIRUBIN,TOTAL 0.6 MG/DL (0.3-1.2); BLOOD UREA NITROGEN 16 MG/DL (9-23); CALCIUM LEVEL 9.2 MG/DL (8.5-10.1); CARBON DIOXIDE LEVEL 30 MMOL/L (20-31); CHLORIDE LEVEL 104 MMOL/L (98-107); CHOLESTEROL LEVEL 128 MG/DL (<200); CHOLESTEROL RISK RATIO 2.94 (<5); CREATININE FOR GFR 1.07 MG/DL (0.70-1.30); GLOMERULAR FILTRATION RATE > 60.0 (>56); GLUCOSE, FASTING 80 MG/DL (60-100); HDL CHOLESTEROL 43.5 MG/DL (>40); LDL CHOLESTEROL 64.5 MG/DL (<100); NON-HDL-C 84.5 MG/DL; POTASSIUM SERUM 5.6 MMOL/L (3.5-5.1); SODIUM LEVEL 140 MMOL/L (136-145); TOTAL PROTEIN 6.7 G/DL (5.7-8.2); TRIGLYCERIDES LEVEL 100 MG/DL (<150)
[2023-04-25 13:56] LABS: HEMOGLOBIN A1c 4.7 % (4.0-6.0)
== END ==
LOC: M SFHCADAM 08:04
PROVIDERS: ATTEND Physician Assistant
DX: Z00.00 Encounter for general adult medical examination without abnormal findings (principal); Z12.5 Encounter for screening for malignant neoplasm of prostate; Z86.16 Personal history of COVID-19; Z85.72 Personal history of non-Hodgkin lymphomas; Z82.49 Family history of ischemic heart disease and other diseases of the circulatory system; Z13.220 Encounter for screening for lipoid disorders; Z13.1 Encounter for screening for diabetes mellitus

== ENCOUNTER → 2023-06-09 | Outpatient (REF) | payer OTHER | LOC: M SFHCADAM 13:44 | PROVIDERS: ATTEND Physician Assistant | DX: E87.5 Hyperkalemia (principal) ==

== ENCOUNTER → 2024-05-08 | Outpatient (REF) | payer OTHER ==
[2024-05-08 13:46] LABS: BASO % 0.5 % (0.0-1.0); EOS # 0.2 10^3/uL (0.0-0.5); EOS % 2.8 % (0.0-3.0); HEMATOCRIT 45.7 % (42.0-52.0); HEMOGLOBIN 15.4 g/dl (13.5-17.5); LYMPH # 2.1 10^3/uL (1.5-5.0); LYMPH % 35.4 % (24.0-44.0); MEAN CORPUSCULAR HEMOGLOBIN 32.2 pg (27.0-33.0); MEAN CORPUSCULAR HGB CONC 33.7 g/dl (32.0-36.5); MEAN CORPUSCULAR VOLUME 95.4 fl (80.0-96.0); MONO # 0.5 10^3/uL (0.0-0.8); NEUTROPHILS # 3.2 10^3/uL (1.5-8.5); NEUTROPHILS % 53.1 % (36.0-66.0); PLATELET COUNT, AUTOMATED 200 10^3/uL (150-450); RED BLOOD COUNT 4.79 10^6/uL (4.30-6.10)
[2024-05-08 14:17] LABS: ALKALINE PHOSPHATASE 63 U/L (40-129); ALT/SGPT 30 U/L (7.0-40); AST/SGOT 23 U/L (<34); BILIRUBIN,TOTAL 0.4 MG/DL (0.3-1.2); BLOOD UREA NITROGEN 26 MG/DL (9-23); CALCIUM LEVEL 9.5 MG/DL (8.3-10.6); CARBON DIOXIDE LEVEL 31 MMOL/L (20-31); CHLORIDE LEVEL 107 MMOL/L (98-107); CHOLESTEROL LEVEL 141 MG/DL (<200); CHOLESTEROL RISK RATIO 4.28 (<5); CREATININE FOR GFR 1.06 MG/DL (0.70-1.30); GLOMERULAR FILTRATION RATE > 60.0 (>49); GLUCOSE, FASTING 78 MG/DL (74-106); HDL CHOLESTEROL 32.9 MG/DL (>40); LDL CHOLESTEROL 72.5 MG/DL (<100); NON-HDL-C 108.1 MG/DL; POTASSIUM SERUM 5.4 MMOL/L (3.5-5.1); PSA SCREENING 1.87 NG/ML (< 4.00); SODIUM LEVEL 141 MMOL/L (136-145); TOTAL PROTEIN 6.7 G/DL (5.7-8.2); TRIGLYCERIDES LEVEL 178 MG/DL (<150)
== END ==
LOC: M SFHCADAM 08:34
PROVIDERS: ATTEND Physician Assistant
DX: Z13.220 Encounter for screening for lipoid disorders (principal); Z82.49 Family history of ischemic heart disease and other diseases of the circulatory system; Z85.72 Personal history of non-Hodgkin lymphomas; Z12.5 Encounter for screening for malignant neoplasm of prostate

== ENCOUNTER → 2025-04-19 | Outpatient (REF) | payer OTHER ==
[~2025-04-19] MED LIST changes: -GALZ50CA PO; -RA T500C2 PO; +TURM500C10 PO; +ZINC50CA4 PO
[2025-04-19 18:01] LABS: ALT/SGPT 33.0 U/L (7.0-40); AST/SGOT 34.0 U/L (<34); BASO # 0.0 10^3/uL (0.0-0.2); BASO % 0.4 % (0.0-1.0); CALCIUM LEVEL 9.4 MG/DL (8.3-10.6); CARBON DIOXIDE LEVEL 29.0 MMOL/L (20-31); CHLORIDE LEVEL 104.0 MMOL/L (98-107); CHOLESTEROL LEVEL 114.0 MG/DL (<200); CHOLESTEROL RISK RATIO 3.23 (<5); CREATININE FOR GFR 1.28 MG/DL (0.70-1.30); EOS # 0.2 10^3/uL (0.0-0.5); EOS % 1.6 % (0.0-3.0); GLOMERULAR FILTRATION RATE 63.7 (>49); LDL CHOLESTEROL 31.0 MG/DL (<100); LYMPH # 2.4 10^3/uL (1.5-5.0); LYMPH % 25.5 % (24.0-44.0); MONO # 0.7 10^3/uL (0.0-0.8); MONO % 7.1 % (2.0-8.0); NEUTROPHILS # 6.0 10^3/uL (1.5-8.5); NEUTROPHILS % 65.2 % (36.0-66.0); NON-HDL-C 78.8 MG/DL; PLATELET COUNT, AUTOMATED 222 10^3/uL (150-450); POTASSIUM SERUM 4.5 MMOL/L (3.5-5.1); SODIUM LEVEL 144.0 MMOL/L (136-145); TRIGLYCERIDES LEVEL 239.0 MG/DL (<150)
[2025-04-19 18:02] LABS: PSA SCREENING 1.8 NG/ML (< 4.00)
== END ==
LOC: M SFHCADAM 11:32
PROVIDERS: ATTEND Physician Assistant
DX: Z00.00 Encounter for general adult medical examination without abnormal findings (principal); L98.9 Disorder of the skin and subcutaneous tissue, unspecified; Z28.21 Immunization not carried out because of patient refusal; Z12.5 Encounter for screening for malignant neoplasm of prostate; Z13.220 Encounter for screening for lipoid disorders; Z82.49 Family history of ischemic heart disease and other diseases of the circulatory system; Z85.72 Personal history of non-Hodgkin lymphomas